=== PATIENT | female | born 1985 | race Caucasian/White ===

== ENCOUNTER 2017-04-21 11:59 | Outpatient (CLI) | payer OTHER ==
[2017-04-21 12:32] LABS: BASOPHILS % (AUTO) 0.5 % (0.0-2.0); EOSINOPHILS % (AUTO) 0.4 % (0.0-4.0); HEMATOCRIT 46.1 % (36-48); HEMOGLOBIN 14.9 g/dL (12.0-16.0); LYMPHOCYTES # (AUTO) 1.5 K/uL (1.0-5.5); LYMPHOCYTES % (AUTO) 19.5 % (20.5-51.5); MEAN CORPUSCULAR HEMOGLOBIN 29 pg (27-31); MEAN CORPUSCULAR HGB CONC 32 % (32-36); MEAN CORPUSCULAR VOLUME 90 fL (79.0-98.0); MONOCYTES # (AUTO) 0.4 K/uL (0.0-1.0); MONOCYTES % (AUTO) 4.6 % (1.7-9.3); NEUTROPHILS # (AUTO) 5.8 K/uL (1.8-7.7); PLATELET COUNT (AUTO) 296 K/uL (130-430); RED BLOOD CELL COUNT(AUTO) 5.15 MIL/uL (4.2-6.2); RED CELL DISTRIBUTION WIDTH 11.7 % (9.0-15.0); WHITE BLOOD COUNT (AUTO) 7.7 K/uL (4.8-10.8)
[2017-04-21 12:50] LABS: BILIRUBIN,DIRECT 0.1 mg/dL (0.0-0.3); CALCIUM 8.9 mg/dL (8.4-11.0); CREATININE 0.8 mg/dL (0.55-1.30); FREE T4 (FREE THYROXINE) 0.8 ng/dL (0.6-1.6); POTASSIUM 4.9 mmol/L (3.5-5.1); THYROID STIMULATING HORMONE 1.16 uIu/mL (0.34-4.82); TOTAL BILIRUBIN 0.3 mg/dL (0.0-1.0); TOTAL PROTEIN, SERUM 7.7 g/dL (6.4-8.3)
[2017-04-22 12:14] LABS: HEMOGLOBIN A1C 5.5 % (4.8-5.6)
== END 2017-04-21 20:52 | disposition home or self-care (01) ==
LOC: SLB 11:59
PROVIDERS: ATTEND Family Medicine
DX: Z00.00 Encounter for general adult medical examination without abnormal findings (principal)
CPT/HCPCS: 36415; 80053; 80061; 82248-TC; 82607; 83036; 84439; 84443-TC; 84479; 85025

== ENCOUNTER 2018-03-31 10:42 | Outpatient (CLI) | payer OTHER | END 2018-03-31 21:08 | disposition home or self-care (01) | LOC: SRD 10:42 | PROVIDERS: ATTEND Family Medicine | DX: R51 Headache (principal) | CPT/HCPCS: 70220-TC ==

== ENCOUNTER → 2022-07-24 | Outpatient (CLI) | payer OTHER ==
[~2022-07-24] MED LIST: GADOTERATE MEGLUMINE 7.5 MMOL/15 ML VIAL IV ONE
== END | disposition home or self-care (01) ==
LOC: SMI 09:50 → EDBD 10:00
PROVIDERS: ATTEND Specialist
DX: N85.2 Hypertrophy of uterus (principal); D25.9 Leiomyoma of uterus, unspecified; K63.89 Other specified diseases of intestine; R10.2 Pelvic and perineal pain
CPT/HCPCS: 72197; A9575

== ENCOUNTER 2022-10-09 05:40 | Day surgery (SDC) | payer OTHER ==
[2022-10-07 13:12] LABS: BILIRUBIN,URINE NEGATIVE (NEGATIVE); CLARITY/URINE CLEAR (CLEAR); COLOR,URINE YELLOW (YELLOW); GLUCOSE,URINE NEGATIVE (NEGATIVE); KETONES,URINE NEGATIVE (NEGATIVE); LEUKOCYTE ESTERASE ,URINE NEGATIVE (NEGATIVE); NITRITE, URINE NEGATIVE (NEGATIVE); PH,URINE 5.5 (5.0-8.0); PROTEIN URINE NEGATIVE (NEGATIVE); UROBILINOGEN,URINE 0.2 (0.2-1.0)
[2022-10-07 13:12] LABS: BASOPHILS % (AUTO) 0.5 % (0.0-2.0); EOSINOPHILS # (AUTO) 0.1 K/uL (0.0-0.4); EOSINOPHILS % (AUTO) 0.9 % (0.0-4.0); HEMATOCRIT 36.8 % (36-48); HEMOGLOBIN 12.2 g/dL (12.0-16.0); LYMPHOCYTES # (AUTO) 2.5 K/uL (1.0-5.5); LYMPHOCYTES % (AUTO) 30.3 % (20.5-51.5); MEAN CORPUSCULAR HEMOGLOBIN 27 pg (27-31); MEAN CORPUSCULAR HGB CONC 33 % (32-36); MEAN CORPUSCULAR VOLUME 80 fL (79.0-98.0); MONOCYTES # (AUTO) 0.7 K/uL (0.0-1.0); MONOCYTES % (AUTO) 8.1 % (1.7-9.3); NEUTROPHILS # (AUTO) 4.9 K/uL (1.8-7.7); NEUTROPHILS % (AUTO) 60.2 % (40.0-70.0); PLATELET COUNT (AUTO) 325 K/uL (130-430); RED CELL DISTRIBUTION WIDTH 14.4 % (9.0-15.0); WHITE BLOOD COUNT (AUTO) 8.2 K/uL (4.8-10.8)
[2022-10-07 13:17] LABS: BLOOD, URINE TRACE (NEGATIVE)
[2022-10-07 13:21] LABS: BACTERIA,URINE RARE /HPF (None Seen); HCG,QUAL RESULT NEGATIVE (NEGATIVE); RBC,URINE 0-3 /HPF (0-3); WBC,URINE 0-3 /HPF (0-3)
[~2022-10-09] VITALS: Ht 167.6 cm; Wt 81.6 kg
[2022-10-09] MEDS ORDERED: ceFAZolin SODIUM 2 GM in D5W 50 ML IV ONE (07:00)
[2022-10-09] MEDS ORDERED: ROCURONIUM BROMIDE 10 MG/ML (ZEMURON) ONE (08:20)
[2022-10-09] MEDS ORDERED: SUGAMMADEX SODIUM 200 MG/2 ML VIAL IV ONE (08:20)
[2022-10-09] MEDS ORDERED: NS IRRIG SOLN 1000 ML IR ONE (08:20)
[2022-10-09] MEDS ORDERED: MEPERIDINE 100 MG INJ. 100 MG/ML VIAL ONE (08:20)
[2022-10-09] MEDS ORDERED: LIDOCAINE/EPI 1% 1:100000 20 ML VIAL ONE (08:20)
[2022-10-09] MEDS ORDERED: fentaNYL CITRATE/PF 100 MCG/2 ML AMP ONE (08:20)
[2022-10-09] MEDS ORDERED: METOCLOPRAMIDE HCL 10 MG/2 ML VIAL ONE ×2 (08:20→15:29)
[2022-10-09] MEDS ORDERED: NS 1000 ML IV.SOLN IV ONE (08:20)
[2022-10-09] MEDS ORDERED: PROPOFOL 200MG/ 20ML VIAL (DIPRIVAN) IV ONE (08:20)
[2022-10-09] MEDS ORDERED: DEXAMETHASONE SOD PHOSPHATE 4 MG/ML VIAL ONE (08:20)
[2022-10-09] MEDS ORDERED: SEVOFLURANE 15 MIN GAS INH ONE (08:20)
[2022-10-09] MEDS ORDERED: ROPIVACAINE 40 MG/20 ML AMP EP ONE (08:20)
[2022-10-09] MEDS ORDERED: ONDANSETRON HCL 4 MG/2 ML VIAL IVP PRN ×2 (11:45→12:30)
[2022-10-09] MEDS ORDERED: OXYCODONE/ACETAMINOPHEN 5-325 TABLET PO PRN ×2 (11:45)
[2022-10-09] MEDS ORDERED: HYDROcodone/ACETAMIN 5-325 MG TAB (NORCO/ VICODIN) PO PRN (11:45)
[2022-10-09] MEDS ORDERED: METOCLOPRAMIDE HCL 10 MG/2 ML VIAL IVP PRN (12:30)
[2022-10-09] MEDS ORDERED: MEPERIDINE HCL/PF 25 MG/ML DISP.SYRIN IVP PRN (12:30)
[2022-10-09] MEDS ORDERED: LR 1,000 ML IV SCH (12:30)
[2022-10-09] MEDS ORDERED: KETOROLAC TROMETHAMINE 30 MG VIAL IVP PRN (12:30)
[2022-10-09] MEDS ORDERED: SIMETHICONE 80 MG TAB.CHEW PO SCH (13:00)
[2022-10-09] MEDS ORDERED: ONDANSETRON HCL 4 MG/2 ML VIAL ONE (13:32)
[2022-10-09] MEDS: HYDROmorphone 1 MG/ML INJ. CARTRIDGE IVP PRN ×4 (13:40→14:28)
[2022-10-09] MEDS ORDERED: HYDROmorphone 1 MG/ML INJ. CARTRIDGE ONE ×3 (13:40→18:07)
[2022-10-09] MEDS ORDERED: KETOROLAC TROMETHAMINE 30 MG VIAL ONE (14:37)
[2022-10-09] MEDS ORDERED: SIMETHICONE 80 MG TAB.CHEW ONE (15:30)
[2022-10-09] MEDS ORDERED: OXYCODONE/ACETAMINOPHEN 5-325 TABLET ONE (16:04)
[2022-10-09] MEDS ORDERED: HYDROmorphone 1 MG/ML INJ. CARTRIDGE IVP PRN (18:00)
[2022-10-09 19:04] VITALS: BP_SYST 132
== END 2022-10-09 19:20 | disposition home or self-care (01) ==
LOC: SDS 05:40 → SMU 05:40 → SDS 19:20
PROVIDERS: ATTEND Specialist
DX: D25.1 Intramural leiomyoma of uterus (principal); D25.0 Submucous leiomyoma of uterus; N85.2 Hypertrophy of uterus; N92.0 Excessive and frequent menstruation with regular cycle; Z20.822 Contact with and (suspected) exposure to COVID-19; Z79.899 Other long term (current) drug therapy
CPT/HCPCS: 81000; 84703; 85025; 36415 ×2; 58545; 64488; 88305; 87426; U0003; J3490; J1100; J1885; J2765; J2405; J2704; J2795; J3010; J1170; J2175; J7060; J7120; J7030; S2900; E0190

== ENCOUNTER 2023-03-05 21:54 | Emergency (ER) | payer BC, OTHER ==
[~2023-03-05] VITALS: Ht 167.6 cm; Wt 83.5 kg
[2023-03-05 22:08] VITALS: BP_SYST 136
--- NOTE | 2023-03-05 22:23 | NUR ---
Patient to ER bed 07 to gown for evaluation.
--- NOTE | 2023-03-05 22:29 | NUR ---
ER Dr. Caldwell at bedside examining patient.
[2023-03-05 22:31] LABS: BILIRUBIN,URINE NEGATIVE (NEGATIVE); BLOOD, URINE 3+ (NEGATIVE); COLOR,URINE YELLOW (YELLOW); GLUCOSE,URINE NEGATIVE (NEGATIVE); KETONES,URINE 3+ (NEGATIVE); LEUKOCYTE ESTERASE ,URINE TRACE (NEGATIVE); NITRITE, URINE NEGATIVE (NEGATIVE); PH,URINE 6.5 (5.0-8.0); PROTEIN URINE NEGATIVE (NEGATIVE); UROBILINOGEN,URINE 0.2 (0.2-1.0)
[2023-03-05 22:33] LABS: BASOPHILS % (AUTO) 0.2 % (0.0-2.0); EOSINOPHILS # (AUTO) 0.1 K/uL (0.0-0.4); EOSINOPHILS % (AUTO) 0.5 % (0.0-4.0); HEMATOCRIT 38.7 % (36-48); HEMOGLOBIN 12.8 g/dL (12.0-16.0); LYMPHOCYTES # (AUTO) 2.5 K/uL (1.0-5.5); LYMPHOCYTES % (AUTO) 18.8 % (20.5-51.5); MEAN CORPUSCULAR HEMOGLOBIN 29 pg (27-31); MEAN CORPUSCULAR HGB CONC 33 % (32-36); MEAN CORPUSCULAR VOLUME 88 fL (79.0-98.0); MONOCYTES # (AUTO) 0.7 K/uL (0.0-1.0); MONOCYTES % (AUTO) 5.2 % (1.7-9.3); NEUTROPHILS # (AUTO) 9.9 K/uL (1.8-7.7); NEUTROPHILS % (AUTO) 75.3 % (40.0-70.0); PLATELET COUNT (AUTO) 252 K/uL (130-430); RED BLOOD CELL COUNT(AUTO) 4.43 MIL/uL (4.2-6.2); WHITE BLOOD COUNT (AUTO) 13.2 K/uL (4.8-10.8)
[2023-03-05 22:41] LABS: CALCIUM 8.1 mg/dL (8.4-11.0); CREATININE 0.68 mg/dL (0.55-1.30)
--- NOTE | 2023-03-05 22:45 | NUR ---
Patient brought in complaining of vaginal bleed. Patient is 17 weeks . denies any abdominal pain or cramping, chest pain, shortness of breath, fever, chills. Patient reports blood is dark and small amount similar to the last day of a menstrual period.
[2023-03-05 22:47] LABS: ALBUMIN 3.1 g/dL (3.4-4.8); TOTAL BILIRUBIN 0.4 mg/dL (0.0-1.0)
[2023-03-05 23:09] LABS: CLARITY/URINE SLIGHTLY CLOUDY (CLEAR)
[2023-03-05] MEDS ORDERED: LR 2,000 ML IV ONE (23:15)
[2023-03-05 23:16] LABS: BACTERIA,URINE FEW /HPF (None Seen)
--- NOTE | 2023-03-05 23:30 | NUR ---
# 20 gauge angiocath placed to lac. Use of asceptic technique. Opsite placed over site. Blood return noted. Flushed with 10 cc of normal saline. No evidence of infiltration noted. Patient tolerated well.
[2023-03-06] MEDS ORDERED: NITR-85 PO ×3 (00:26→01:10)
[2023-03-06] MEDS ORDERED: NITROFURANTOIN MONOHYD/M-CRYST 100 MG CAPSULE (MacroBID) PO ONE (00:30)
[2023-03-06 01:08] VITALS: BP_SYST 112
--- NOTE | 2023-03-06 01:08 | NUR ---
Patient given written and verbal discharge instructions and verbalizes understanding. ER MD discussed with patient the results and treatment provided. Patient in stable condition. ID arm band removed. IV catheter removed intact and dressing applied, no active bleeding. Rx of macrobid and zofran given. Patient educated on pain management and to follow up with PMD. Pain Scale 0/10 Opportunity for questions provided and answered. Medication side effect fact sheet provided.
[2023-03-06] MEDS ORDERED: ONDA-8 TL (01:09)
== END 2023-03-06 01:08 | disposition home or self-care (01) ==
LOC: SED 21:54
DX: O20.0 Threatened abortion (principal); O23.92 Unspecified genitourinary tract infection in pregnancy, second trimester; O26.892 Other specified pregnancy related conditions, second trimester; O99.282 Endocrine, nutritional and metabolic diseases complicating pregnancy, second trimester; E78.5 Hyperlipidemia, unspecified; Z3A.17 17 weeks gestation of pregnancy; Z79.899 Other long term (current) drug therapy
CPT/HCPCS: 99284; 96360; 76805; 96361; 80053; 81000; 85025; 87086; 36415; J7030

== ENCOUNTER 2023-07-24 05:44 | Inpatient (IN) | payer BC ==
[~2023-07-24] VITALS: Ht 167.6 cm; Wt 93.4 kg
[~2023-07-24 05:44] MED LIST changes: -GADOTERATE MEGLUMINE 7.5 MMOL/15 ML VIAL IV ONE; +NITR-85 PO; +ONDA-8 TL
[2023-07-24] MEDS ORDERED: CEFAZOLIN 2 GM IVPB PREMIX 50 ML IV ONE (06:00)
[2023-07-24] MEDS ORDERED: LR 1,000 ML IV SCH ×2 (06:00→08:45)
[2023-07-24 06:23] VITALS: BP_SYST 124; PULSE 95; RESP 18; TEMP 97.5
[2023-07-24 07:16] LABS: BILIRUBIN,URINE NEGATIVE (NEGATIVE); BLOOD, URINE NEGATIVE (NEGATIVE); CLARITY/URINE Clear (CLEAR); COLOR,URINE YELLOW (YELLOW); GLUCOSE,URINE NEGATIVE (NEGATIVE); KETONES,URINE 2+ (NEGATIVE); LEUKOCYTE ESTERASE ,URINE NEGATIVE (NEGATIVE); NITRITE, URINE NEGATIVE (NEGATIVE); PH,URINE 5.5 (5.0-8.0); UROBILINOGEN,URINE 0.2 (0.2-1.0)
[2023-07-24 07:19] LABS: PROTEIN URINE TRACE (NEGATIVE)
[2023-07-24 07:23] LABS: BASOPHILS % (AUTO) 0.5 % (0.0-2.0); EOSINOPHILS # (AUTO) 0.1 K/uL (0.0-0.4); EOSINOPHILS % (AUTO) 0.7 % (0.0-4.0); HEMATOCRIT 36.1 % (36-48); HEMOGLOBIN 11.9 g/dL (12.0-16.0); LYMPHOCYTES % (AUTO) 21.8 % (20.5-51.5); MEAN CORPUSCULAR HEMOGLOBIN 29 pg (27-31); MEAN CORPUSCULAR HGB CONC 33 % (32-36); MEAN CORPUSCULAR VOLUME 89 fL (79.0-98.0); MONOCYTES # (AUTO) 0.6 K/uL (0.0-1.0); MONOCYTES % (AUTO) 6.8 % (1.7-9.3); NEUTROPHILS # (AUTO) 6.4 K/uL (1.8-7.7); NEUTROPHILS % (AUTO) 70.2 % (40.0-70.0); PLATELET COUNT (AUTO) 216 K/uL (130-430); RED BLOOD CELL COUNT(AUTO) 4.04 MIL/uL (4.2-6.2); RED CELL DISTRIBUTION WIDTH 13.7 % (9.0-15.0); WHITE BLOOD COUNT (AUTO) 9.1 K/uL (4.8-10.8)
[2023-07-24] MEDS ORDERED: WATER FOR IRRIGATION,STERILE 1,000 ML IRRIG.SOLN IR ONE (07:54)
[2023-07-24] MEDS ORDERED: METOCLOPRAMIDE HCL 10 MG/2 ML VIAL ONE (07:54)
[2023-07-24] MEDS ORDERED: KETOROLAC TROMETHAMINE 30 MG VIAL ONE (07:54)
[2023-07-24] MEDS ORDERED: OXYTOCIN/0.9 % SODIUM CHLORIDE 20 UNITS/1,000 ML BAG IV ONE (07:54)
[2023-07-24] MEDS ORDERED: MORPHINE SULFATE 10MG/10ML PF AMP ONE (07:54)
[2023-07-24] MEDS ORDERED: PHENYLEPHRINE HCL 10 MG/ML VIAL (NEOSYNEPHRINE) ONE (07:54)
[2023-07-24] MEDS ORDERED: NS IRRIG SOLN 1000 ML IR ONE (07:54)
[2023-07-24] MEDS ORDERED: OXYTOCIN 10 UNIT/ML VIAL ONE (07:54)
[2023-07-24] MEDS ORDERED: ePHEDrine sulfate 50 MG/ML VIAL ONE (07:54)
[2023-07-24] MEDS ORDERED: LR 1,000 ML IV.SOLN IV ONE (07:54)
[2023-07-24] MEDS ORDERED: BUPIVACAINE /DEX PF 0.75% SPINAL 2 ML AMP INJ ONE (07:54)
[2023-07-24] MEDS ORDERED: fentaNYL CITRATE/PF 100 MCG/2 ML AMP ONE (07:54)
[2023-07-24] MEDS ORDERED: DEXAMETHASONE SOD PHOSPHATE 4 MG/ML VIAL ONE (07:54)
[2023-07-24] MEDS ORDERED: ONDANSETRON HCL 4 MG/2 ML VIAL ONE (07:54)
[2023-07-24] MEDS ORDERED: DIPHENHYDRAMINE INJ 50 MG/ML VIAL IM PRN (08:30)
[2023-07-24] MEDS ORDERED: NALOXONE HCL 0.4 MG/ML AMP (NARCAN) IVP PRN (08:30)
[2023-07-24] MEDS ORDERED: KETOROLAC TROMETHAMINE 60 MG/2 ML VIAL IM PRN (08:30)
[2023-07-24] MEDS ORDERED: MORPHINE SULFATE 10MG/10ML PF AMP SP SCH (08:30)
[2023-07-24] MEDS ORDERED: ONDANSETRON HCL 4 MG/2 ML VIAL IVP PRN (08:30)
[2023-07-24] MEDS ORDERED: DIPHTH,PERTUSS(ACELL),TET VAC 0.5 ML VIAL (Tdap) I.M. PRN (08:45)
[2023-07-24] MEDS ORDERED: ANUSOL 1 EA SUPP.RECT (PREPARATION H) RC PRN (08:45)
[2023-07-24] MEDS ORDERED: LANOLIN 7 GM OINT. TP PRN (08:45)
[2023-07-24] MEDS ORDERED: OXYTOCIN/0.9 % SODIUM CHLORIDE 1,000 ML IV ONE (08:45)
[2023-07-24] MEDS ORDERED: TEMAZEPAM 15 MG CAPSULE PO PRN (08:45)
[2023-07-24] MEDS ORDERED: MEASLES,MUMPS&RUBELLA VACC/PF 12500 UNIT/0.5 ML VIAL SUBQ PRN (08:45)
[2023-07-24] MEDS ORDERED: RHO(D) IMMUNE GLOBULIN/MALTOSE 1500 UNITS/1.3 ML (WINHRO) IM PRN (08:45)
[2023-07-24] MEDS ORDERED: BISACODYL 10 MG/SUPPOSITORY RC PRN (08:45)
[2023-07-24] MEDS ORDERED: HYDROcodone/ACETAMIN 5-325 MG TAB (NORCO/ VICODIN) PO PRN (08:45)
[2023-07-24] MEDS: IBUPROFEN 600 MG TABLET PO SCH ×2 (11:58→17:42)
[2023-07-24] MEDS ORDERED: SENNOSIDES/DOCUSATE SODIUM 1 TAB TABLET(SENOKOT-S) PO SCH (21:00)
[2023-07-24] MEDS: SIMETHICONE 80 MG TAB.CHEW PO PRN (22:57)
[2023-07-25] MEDS: IBUPROFEN 600 MG TABLET PO SCH ×5 (00:04→23:52)
[2023-07-25] MEDS: SIMETHICONE 80 MG TAB.CHEW PO PRN ×5 (02:03→21:12)
[2023-07-25] MEDS: OXYCODONE/ACETAMINOPHEN 5-325 TABLET PO PRN ×4 (02:15→18:51)
[2023-07-25 06:06] LABS: RUBELLA AB, IgG 1.65 index (Immune >0.99)
[2023-07-25 06:58] LABS: BASOPHILS % (AUTO) 0.3 % (0.0-2.0); EOSINOPHILS # (AUTO) 0.1 K/uL (0.0-0.4); EOSINOPHILS % (AUTO) 0.6 % (0.0-4.0); HEMATOCRIT 32.6 % (36-48); HEMOGLOBIN 10.8 g/dL (12.0-16.0); LYMPHOCYTES # (AUTO) 3.1 K/uL (1.0-5.5); LYMPHOCYTES % (AUTO) 23.5 % (20.5-51.5); MEAN CORPUSCULAR HEMOGLOBIN 30 pg (27-31); MEAN CORPUSCULAR HGB CONC 33 % (32-36); MEAN CORPUSCULAR VOLUME 90 fL (79.0-98.0); MONOCYTES # (AUTO) 1.2 K/uL (0.0-1.0); MONOCYTES % (AUTO) 9.1 % (1.7-9.3); NEUTROPHILS # (AUTO) 8.8 K/uL (1.8-7.7); NEUTROPHILS % (AUTO) 66.5 % (40.0-70.0); PLATELET COUNT (AUTO) 229 K/uL (130-430); RED BLOOD CELL COUNT(AUTO) 3.63 MIL/uL (4.2-6.2); RED CELL DISTRIBUTION WIDTH 13.5 % (9.0-15.0); WHITE BLOOD COUNT (AUTO) 13.1 K/uL (4.8-10.8)
[2023-07-25 08:05] LABS: HEPATITIS B SURFACE AG Negative (Negative)
[2023-07-25] MEDS: DOCUSATE SODIUM 100 MG CAPSULE PO SCH (08:10)
[2023-07-25 20:30] VITALS: BP_SYST 146; PULSE 91; RESP 18; TEMP 97.7
[2023-07-25] MEDS: CYCLOBENZAPRINE HCL 10 MG TABLET (FLEXERIL) PO SCH (21:10)
[2023-07-26] MEDS: OXYCODONE/ACETAMINOPHEN 5-325 TABLET PO PRN ×4 (00:48→13:40)
[2023-07-26] MEDS: IBUPROFEN 600 MG TABLET PO SCH ×2 (05:42→12:11)
[2023-07-26] MEDS: SIMETHICONE 80 MG TAB.CHEW PO PRN ×3 (05:43→13:40)
[2023-07-26] MEDS: CYCLOBENZAPRINE HCL 10 MG TABLET (FLEXERIL) PO SCH (06:34)
[2023-07-26] MEDS: DOCUSATE SODIUM 100 MG CAPSULE PO SCH (10:09)
== END 2023-07-26 14:10 | disposition home or self-care (01) | DRG 788 ==
LOC: SMU 05:44 → SPU 06:00
PROVIDERS: ADMIT Obstetrics & Gynecology; ATTEND Obstetrics & Gynecology
PROC: 10D00Z1 Extraction of Products of Conception, Low, Open Approach (ICD-10-PCS; principal; 2023-07-24 07:48)
DX: O82 Encounter for cesarean delivery without indication (principal); Z37.0 Single live birth; Z3A.37 37 weeks gestation of pregnancy
CPT/HCPCS: 36415; 81003; 85025; 86592; 86762; 86886; 86900; 86901; 87340; 87536; J0690; J1100; J1885; J2274; J2370; J2405; J2590; J2765; J3010; J3490; J7120